=== PATIENT | male | born 1970 | race Caucasian/White ===

== ENCOUNTER 2019-11-22 04:06 | Inpatient (IN) | payer MEDICARE, MEDICAID ==
[2019-11-22] VITALS (7 sets, daily range): BP systolic 157–185; BP diastolic 99–117
[~2019-11-22] VITALS: Ht 167.6 cm; Wt 77.3 kg
[2019-11-22 05:14] LABS: BASOPHILS % 1.2 % (0.0-2.0); CHLORIDE 105 mEq/L (98-107); HEMATOCRIT. 38.2 % (42.0-52.0); HEMOGLOBIN. 12.9 g/dL (14.0-18.0); LYMPHOCYTES % 13.8 % (20.0-50.0); MEAN CORPUSCULAR HEMOGLOBIN 30.7 pg (28.0-32.0); MEAN CORPUSCULAR VOLUME 90.7 fL (80.0-94.0); MEAN PLATELET VOLUME 9.8 fl (7.4-10.4); PLATELET 123 x1000/uL (130-400); RED BLOOD CELL COUNT 4.21 mill/uL (4.7-6.1); RED CELL DISTRIBUTION WIDTH 15.2 % (11.6-14.6)
[2019-11-22] MEDS ORDERED: CALCIUM CHLORIDE 1GM/10ML SYR IV SCH (05:45)
[2019-11-22] MEDS ORDERED: SODIUM BICARBONATE 8.4% 1 MEQ/ML 50ML SYR IV SCH (05:45)
[2019-11-22] MEDS ORDERED: SODIUM POLYSTYRENE SULFONATE 15 G/60 ML BOT PO SCH (05:45)
[2019-11-22] MEDS ORDERED: ALBUTEROL (0.083%) 2.5MG/3ML NEB HHN SCH (05:45)
[2019-11-22] MEDS ORDERED: CALC667C MT (11:03)
[2019-11-22] MEDS ORDERED: CARV3.1242 PO (11:04)
[2019-11-22] MEDS ORDERED: NIFE-33 PO (11:04)
[2019-11-22] MEDS ORDERED: CLONIDINE 0.1MG TABLET PO PRN (12:15)
[2019-11-22] MEDS ORDERED: DEXTROSE 50% WATER 50ML SYRINGE IV PRN (15:15)
[2019-11-22] MEDS: NIFEDIPINE XL 30MG TAB PO SCH (15:28)
[2019-11-22] MEDS: BLOOD SUGAR DIAGNOSTIC STRIP TEST SCH ×2 (17:40→21:19)
[2019-11-22] MEDS: INSULIN LISPRO 100 UNITS/ML SUBCUT SCH ×2 (17:50→21:00)
[2019-11-22] MEDS: CALCIUM ACETATE 667MG CAPSULE PO SCH (18:51)
[2019-11-22] MEDS: CARVEDILOL 3.125 MG TABLET PO SCH (21:11)
[2019-11-23] VITALS (7 sets, daily range): BP systolic 148–176; BP diastolic 90–100
[2019-11-23] MEDS: BLOOD SUGAR DIAGNOSTIC STRIP TEST SCH ×3 (06:42→16:45)
[2019-11-23] MEDS: INSULIN LISPRO 100 UNITS/ML SUBCUT SCH ×3 (08:10→17:03)
[2019-11-23] MEDS: NIFEDIPINE XL 30MG TAB PO SCH (08:55)
[2019-11-23] MEDS: CALCIUM ACETATE 667MG CAPSULE PO SCH ×3 (08:55→18:12)
[2019-11-23] MEDS: CARVEDILOL 3.125 MG TABLET PO SCH ×2 (08:55→21:02)
[2019-11-23 10:31] LABS: BASOPHILS % 0.9 % (0.0-2.0); EOSINOPHILS % 6.2 % (0.0-5.0); HEMATOCRIT. 37.1 % (42.0-52.0); HEMOGLOBIN. 12.7 g/dL (14.0-18.0); LYMPHOCYTES % 19.1 % (20.0-50.0); MEAN CORPUSCULAR HEMOGLOBIN 30.8 pg (28.0-32.0); MEAN CORPUSCULAR VOLUME 89.8 fL (80.0-94.0); MEAN PLATELET VOLUME 9.7 fl (7.4-10.4); MONOCYTES % 9.7 % (2.0-8.0); NEUTROPHILS % 64.1 % (40.0-76.0); PLATELET 134 x1000/uL (130-400); RED BLOOD CELL COUNT 4.13 mill/uL (4.7-6.1); RED CELL DISTRIBUTION WIDTH 15.2 % (11.6-14.6)
[2019-11-24] VITALS: BP 139/80
[2019-11-24 06:06] LABS: BASOPHILS % 1.3 % (0.0-2.0); EOSINOPHILS % 5.1 % (0.0-5.0); HEMATOCRIT. 38.7 % (42.0-52.0); HEMOGLOBIN. 13.3 g/dL (14.0-18.0); LYMPHOCYTES % 22.9 % (20.0-50.0); MEAN CORPUSCULAR HEMOGLOBIN 30.7 pg (28.0-32.0); MEAN CORPUSCULAR VOLUME 89.2 fL (80.0-94.0); MEAN PLATELET VOLUME 9.6 fl (7.4-10.4); MONOCYTES % 12.7 % (2.0-8.0); PLATELET 153 x1000/uL (130-400); RED BLOOD CELL COUNT 4.34 mill/uL (4.7-6.1); RED CELL DISTRIBUTION WIDTH 14.8 % (11.6-14.6)
[2019-11-24] MEDS: CALCIUM ACETATE 667MG CAPSULE PO SCH ×2 (06:15→12:09)
[2019-11-24 08:00] VITALS: BP 145/78
[2019-11-24] MEDS: CARVEDILOL 3.125 MG TABLET PO SCH (08:45)
[2019-11-24] MEDS: NIFEDIPINE XL 30MG TAB PO SCH (08:45)
[2019-11-24 12:00] VITALS: BP 150/95
[2019-11-24 16:00] VITALS: BP 148/93
[2019-11-24 16:17] VITALS: BP 148/93
== END 2019-11-24 17:03 | disposition home or self-care (01) | DRG 291 ==
LOC: ER 04:06 → 7WST 05:50 → ENRESERV 08:50 → 5WST 11-23 14:41
PROVIDERS: ADMIT Internal Medicine; ATTEND Internal Medicine
PROC: 5A1D70Z Performance of Urinary Filtration, Intermittent, Less than 6 Hours Per Day (ICD-10-PCS; principal; 2019-11-22)
PROC: 5A1D70Z Performance of Urinary Filtration, Intermittent, Less than 6 Hours Per Day (ICD-10-PCS; 2019-11-23)
DX: I13.2 Hypertensive heart and chronic kidney disease with heart failure and with stage 5 chronic kidney disease, or end stage renal disease (principal); N18.6 End stage renal disease; J96.00 Acute respiratory failure, unspecified whether with hypoxia or hypercapnia; I50.43 Acute on chronic combined systolic (congestive) and diastolic (congestive) heart failure; J81.1 Chronic pulmonary edema; E11.22 Type 2 diabetes mellitus with diabetic chronic kidney disease; Z20.828 Contact with and (suspected) exposure to other viral communicable diseases; E87.5 Hyperkalemia; E87.70 Fluid overload, unspecified; E66.9 Obesity, unspecified; F41.0 Panic disorder [episodic paroxysmal anxiety]; Z99.2 Dependence on renal dialysis; Z79.899 Other long term (current) drug therapy; Z68.27 Body mass index [BMI] 27.0-27.9, adult
CPT/HCPCS: 36415; 71045; 80048; 80053; 82962; 83036; 83880; 84484; 85025; 87635; 93005; 94640; 99291; J3490

== ENCOUNTER 2021-01-01 12:17 | Inpatient (IN) | payer MEDICARE, MEDICAID ==
[~2021-01-01] VITALS: Ht 167.6 cm; Wt 69.9 kg
[~2021-01-01 12:17] MED LIST: CALC667C MT; CARV3.1242 PO; NIFE-33 PO
[2021-01-01] MEDS ORDERED: HYDROMORPHONE HCL/PF 2MG/ML CPJ IV ONE ×2 (13:30→17:15)
[2021-01-01 14:25] LABS: HEMATOCRIT. 38.9 % (42.0-52.0); HEMOGLOBIN. 13.1 g/dL (14.0-18.0); MEAN CORPUSCULAR HEMOGLOBIN 30.2 pg (28.0-32.0); MEAN CORPUSCULAR VOLUME 89.9 fL (80.0-94.0); MEAN PLATELET VOLUME 9.5 fl (7.4-10.4); PLATELET 178 x1000/uL (130-400); RED BLOOD CELL COUNT 4.32 mill/uL (4.7-6.1); RED CELL DISTRIBUTION WIDTH 16.2 % (11.6-14.6)
[2021-01-01 14:30] LABS: CHLORIDE 100 mEq/L (98-107)
[2021-01-01 15:22] LABS: PLATELET ESTIMATE NORMAL
[2021-01-01] MEDS ORDERED: CLONIDINE 0.1MG TABLET PO PRN (20:15)
[2021-01-01] MEDS ORDERED: ACETAMINOPHEN 325MG TABLET PO PRN ×2 (20:15)
[2021-01-01] MEDS ORDERED: ZOLPIDEM TARTRATE 5MG TABLET PO PRN (20:15)
[2021-01-01] MEDS ORDERED: ONDANSETRON HCL 4MG/2ML INJ IV PRN (20:15)
[2021-01-01] MEDS ORDERED: DIPHENHYDRAMINE 50MG/ML VIAL IV PRN (20:15)
[2021-01-01] MEDS ORDERED: MAGNESIUM/ALUMINUM HYDROXIDE/SIMETHICONE 30ML UDC PO PRN (20:15)
[2021-01-01] MEDS: FAMOTIDINE 20MG TABLET PO SCH (21:26)
[2021-01-01] MEDS: HYDROMORPHONE HCL/PF 2MG/ML CPJ IV PRN (21:35)
[2021-01-01] MEDS: SODIUM CHLORIDE 0.9% INJ 3ML FLUSH IVF SCH (21:57)
[2021-01-01] MEDS ORDERED: LABETALOL 5MG/ML SYR 20 MG/4 ML SYRINGE IV NR (22:15)
[2021-01-02] MEDS ORDERED: CLONIDINE 0.2MG TABLET PO PRN (00:15)
[2021-01-02 03:00] VITALS: BP 150/90
[2021-01-02 03:30] VITALS: BP 146/89
[2021-01-02] MEDS: SODIUM CHLORIDE 0.9% INJ 3ML FLUSH IVF SCH ×3 (05:04→21:17)
[2021-01-02] MEDS: HYDROMORPHONE HCL/PF 2MG/ML CPJ IV PRN (05:05)
[2021-01-02 08:00] VITALS: BP 134/75
[2021-01-02 09:02] LABS: EOSINOPHILS % 2.1 % (0.0-5.0); HEMATOCRIT. 28.8 % (42.0-52.0); HEMOGLOBIN. 9.7 g/dL (14.0-18.0); LYMPHOCYTES % 11.1 % (20.0-50.0); MEAN CORPUSCULAR HEMOGLOBIN 31.1 pg (28.0-32.0); MEAN CORPUSCULAR VOLUME 92.3 fL (80.0-94.0); MEAN PLATELET VOLUME 9.2 fl (7.4-10.4); MONOCYTES % 13.1 % (2.0-8.0); NEUTROPHILS % 72.7 % (40.0-76.0); PLATELET 174 x1000/uL (130-400); RED BLOOD CELL COUNT 3.12 mill/uL (4.7-6.1); RED CELL DISTRIBUTION WIDTH 16.2 % (11.6-14.6)
[2021-01-02] MEDS: NIFEDIPINE XL 30MG TAB PO SCH (09:16)
[2021-01-02 12:00] VITALS: BP 127/81
[2021-01-02 12:38] LABS: HEPATITIS B SURFACE ANTIGEN NEGATIVE
[2021-01-02 16:00] VITALS: BP 120/79
[2021-01-02 20:00] VITALS: BP 124/78
[2021-01-02] MEDS: HYDRALAZINE HCL 100MG TABLET PO SCH (21:17)
[2021-01-02] MEDS: FAMOTIDINE 20MG TABLET PO SCH (21:17)
[2021-01-03] VITALS: BP 133/79
[2021-01-03 04:00] VITALS: BP 152/92
[2021-01-03] MEDS: SODIUM CHLORIDE 0.9% INJ 3ML FLUSH IVF SCH ×3 (05:09→21:26)
[2021-01-03] MEDS: HYDRALAZINE HCL 100MG TABLET PO SCH ×3 (05:09→21:27)
[2021-01-03 07:58] LABS: EOSINOPHILS % 3.6 % (0.0-5.0); HEMATOCRIT. 29.8 % (42.0-52.0); HEMOGLOBIN. 9.4 g/dL (14.0-18.0); LYMPHOCYTES % 10.9 % (20.0-50.0); MEAN CORPUSCULAR HEMOGLOBIN 30.6 pg (28.0-32.0); MEAN CORPUSCULAR VOLUME 97.1 fL (80.0-94.0); MEAN PLATELET VOLUME 9.4 fl (7.4-10.4); MONOCYTES % 12.6 % (2.0-8.0); NEUTROPHILS % 71.9 % (40.0-76.0); PLATELET 157 x1000/uL (130-400); RED BLOOD CELL COUNT 3.07 mill/uL (4.7-6.1); RED CELL DISTRIBUTION WIDTH 16.8 % (11.6-14.6)
[2021-01-03 08:00] VITALS: BP 131/85
[2021-01-03] MEDS: NIFEDIPINE XL 30MG TAB PO SCH (08:56)
[2021-01-03 12:00] VITALS: BP 134/86
[2021-01-03] MEDS ORDERED: HYDROCODONE/ACETAMINOPHEN 10/325MG TABLET PO PRN (15:30)
[2021-01-03 16:00] VITALS: BP 138/80
[2021-01-03 20:00] VITALS: BP 133/71
[2021-01-03] MEDS: FAMOTIDINE 20MG TABLET PO SCH (21:26)
[2021-01-04] VITALS: BP 119/71
[2021-01-04 04:00] VITALS: BP 136/80
[2021-01-04] MEDS: HYDRALAZINE HCL 100MG TABLET PO SCH ×2 (05:40→14:43)
[2021-01-04] MEDS: SODIUM CHLORIDE 0.9% INJ 3ML FLUSH IVF SCH ×2 (05:40→14:43)
[2021-01-04 07:51] LABS: HEMATOCRIT 27.3 % (42.0-52.0); HEMOGLOBIN 9.2 g/dL (14.0-18.0); MEAN CORPUSCULAR HEMOGLOBIN 30.4 pg (28.0-32.0); MEAN CORPUSCULAR VOLUME 90.7 fL (80.0-94.0); PLATELET 163 x1000/uL (130-400); RED BLOOD CELL COUNT 3.01 mill/uL (4.7-6.1); RED CELL DISTRIBUTION WIDTH 16.6 % (11.6-14.6)
[2021-01-04 08:00] VITALS: BP 123/76
[2021-01-04] MEDS: NIFEDIPINE XL 30MG TAB PO SCH (09:52)
[2021-01-04 16:02] VITALS: BP 126/80
== END 2021-01-04 16:25 | disposition home or self-care (01) | DRG 604 ==
LOC: ER 12:17 → MICUSO 18:38 → EDBEDREQSVC 18:40 → EDBEDREQ 18:40 → EDBEDREQTM 18:40 → 6EST 01-02 02:23
PROVIDERS: ADMIT Internal Medicine; ATTEND Internal Medicine
PROC: 5A1D70Z Performance of Urinary Filtration, Intermittent, Less than 6 Hours Per Day (ICD-10-PCS; principal; 2021-01-03)
DX: S30.1XXA Contusion of abdominal wall, initial encounter (principal); N18.6 End stage renal disease; I12.0 Hypertensive chronic kidney disease with stage 5 chronic kidney disease or end stage renal disease; E11.22 Type 2 diabetes mellitus with diabetic chronic kidney disease; X58.XXXA Exposure to other specified factors, initial encounter; E66.9 Obesity, unspecified; E87.5 Hyperkalemia; Z20.822 Contact with and (suspected) exposure to COVID-19; Z99.2 Dependence on renal dialysis; Z68.24 Body mass index [BMI] 24.0-24.9, adult; Z79.899 Other long term (current) drug therapy; Y93.89 Activity, other specified; Y92.89 Other specified places as the place of occurrence of the external cause; Y99.8 Other external cause status
CPT/HCPCS: 36415; 71045; 74176; 80048; 80053; 83880; 84484; 85025; 85027; 86705; 86709; 86803; 87340; 87426; 93005; 99285; J1170; J3490

== ENCOUNTER 2024-04-10 17:17 | Inpatient (IN) | payer MEDICARE, MEDICAID ==
[~2024-04-10] VITALS: Ht 162.6 cm; Wt 87.1 kg
[2024-04-10 20:53] LABS: BASOPHILS % 1.5 % (0.0-2.0); DIFFERENTIAL COMMENT 0; EOSINOPHILS % 4.7 % (0.0-5.0); LYMPHOCYTES % 11.8 % (20.0-50.0); MEAN CORPUSCULAR HEMOGLOBIN 25.9 pg (28.0-32.0); MEAN CORPUSCULAR HGB CONC 30.5 g/dL (31.0-37.0); MEAN CORPUSCULAR VOLUME 85.1 fL (80.0-94.0); MEAN PLATELET VOLUME 7.8 fl (7.4-10.4); MONOCYTES % 12.6 % (2.0-8.0); NEUTROPHILS % 69.4 % (40.0-76.0); PLATELET 183 x1000/uL (130-400); RED BLOOD CELL COUNT 2.32 mill/uL (4.7-6.1); RED CELL DISTRIBUTION WIDTH 19.6 % (11.6-14.6); WHITE BLOOD COUNT 5.1 x1000/uL (4.5-11.0)
[2024-04-10 20:57] LABS: HEMATOCRIT. 19.7 % (42.0-52.0)
[2024-04-10 21:05] LABS: INR 1.1; PARTIAL THROMBOPLASTIN TIME 27.9 sec (23.4-31.0); PROTHROMBIN TIME 11.8 sec (9.6-11.0)
[2024-04-10 21:18] LABS: CHLORIDE 101 mEq/L (98-107); SODIUM 142 mEq/L (136-145)
[2024-04-10 21:19] LABS: CALCIUM 8.9 mg/dL (8.7-10.4); CARBON DIOXIDE 32 mEq/L (21-32)
[2024-04-10 21:24] LABS: GLUCOSE 92 mg/dL (70-105); UREA NITROGEN BLOOD 31 mg/dL (9-23)
[2024-04-11] VITALS (10 sets, daily range): BP systolic 118–160; BP diastolic 63–93; PULSE 77–91; RESP 16–20; TEMP 35.78064–36.9; O2SAT 96–100
[2024-04-11] MEDS ORDERED: KEPP500 MT (03:04)
[2024-04-11] MEDS ORDERED: FERR325T6 PO (03:04)
[2024-04-11] MEDS ORDERED: DEXTROSE 50% WATER 50ML SYRINGE IV PRN (03:15)
[2024-04-11] MEDS ORDERED: ONDANSETRON HCL 4MG/2ML INJ IV PRN (03:15)
[2024-04-11] MEDS ORDERED: *PATIENT'S OWN MEDICATION STORAGE XX SCH (05:00)
[2024-04-11] MEDS: BLOOD SUGAR DIAGNOSTIC STRIP TEST SCH (06:41)
[2024-04-11] MEDS: INSULIN LISPRO 100 UNITS/ML SUBCUT SCH (06:41)
[2024-04-11] MEDS: CALCIUM ACETATE 667MG CAPSULE PO SCH (10:05)
[2024-04-11] MEDS: LEVETIRACETAM 500MG TABLET PO SCH (10:06)
[2024-04-11] MEDS: NIFEDIPINE XL 30MG TAB PO SCH (10:06)
[2024-04-11] MEDS: CARVEDILOL 3.125 MG TABLET PO SCH (10:16)
[2024-04-11] MEDS ORDERED: ALLO100T MT (12:46)
[2024-04-11 17:21] LABS: HEMATOCRIT 25.8 % (42.0-52.0); HEMOGLOBIN 8.1 g/dL (14.0-18.0)
[2024-04-11 17:34] LABS: IRON 44 ug/dL (65-175)
[2024-04-11 17:37] LABS: TOTAL IRON BINDING CAPACITY 318 ug/dl (250-425)
[2024-04-11] MEDS: PNEUMOCOCCAL 20-VAL CONJ-DIP CRM 0.5ML IM ONE (21:00)
[2024-04-11] MEDS: IOHEXOL-300 100 ML BOTTLE ONE (23:37)
[2024-04-12] VITALS (11 sets, daily range): BP systolic 114–147; BP diastolic 65–87; PULSE 65–79; RESP 18–20; TEMP 35.6–36.7; O2SAT 96–100
[2024-04-12 07:02] LABS: CHLORIDE 97 mEq/L (98-107); POTASSIUM 4.8 mEq/L (3.5-5.1); SODIUM 137 mEq/L (136-145)
[2024-04-12 07:05] LABS: CARBON DIOXIDE 28 mEq/L (21-32)
[2024-04-12 07:07] LABS: BASOPHILS % 2.2 % (0.0-2.0); HEMATOCRIT. 24.7 % (42.0-52.0); LYMPHOCYTES % 10.7 % (20.0-50.0); MEAN CORPUSCULAR HEMOGLOBIN 27.2 pg (28.0-32.0); MEAN CORPUSCULAR HGB CONC 32.2 g/dL (31.0-37.0); MEAN CORPUSCULAR VOLUME 84.3 fL (80.0-94.0); MEAN PLATELET VOLUME 8.2 fl (7.4-10.4); MONOCYTES % 9.7 % (2.0-8.0); NEUTROPHILS % 72.4 % (40.0-76.0); PLATELET 169 x1000/uL (130-400); RED BLOOD CELL COUNT 2.93 mill/uL (4.7-6.1); RED CELL DISTRIBUTION WIDTH 19.2 % (11.6-14.6); WHITE BLOOD COUNT 5.4 x1000/uL (4.5-11.0)
[2024-04-12 07:10] LABS: GLUCOSE 96 mg/dL (70-105); UREA NITROGEN BLOOD 49 mg/dL (9-23)
[2024-04-12 07:12] LABS: ALANINE AMINOTRANSFERASE 7 IU/L (10-49); ALBUMIN 3.6 g/dL (3.2-4.8); ASPARTATE AMINOTRANSFERASE 13 IU/L (<34); BILIRUBIN DIRECT 0.2 mg/dL (<=3.0); BILIRUBIN TOTAL 0.5 mg/dL (0.1-1.0); PROTEIN TOTAL 6.1 g/dL (6.0-8.3)
[2024-04-12 07:18] LABS: CREATININE 7.3 mg/dL (0.6-1.3)
[2024-04-12 07:59] LABS: FOLIC ACID (FOLATE) SERUM 11.55 ng/mL (>5.38); VITAMIN B12 SERUM 1677 pg/mL (211-911)
[2024-04-12 08:10] LABS: HEPATITIS B SURFACE ANTIGEN NEGATIVE (Negative)
[2024-04-12 08:30] LABS: HEPATITIS A AB IGM NEGATIVE (Negative)
[2024-04-12 08:31] LABS: HEPATITIS B CORE AB IGM NEGATIVE (Negative); HEPATITIS C AB NON REACTIVE (Neg) (Negative)
[2024-04-12] MEDS: ASCORBIC ACID 250 MG TABLET PO SCH (18:05)
[2024-04-12] MEDS: FERROUS SULFATE 325MG TABLET PO SCH (18:05)
[2024-04-13] VITALS: BP 152/85; PULSE 66; RESP 18; TEMP 36.4; O2SAT 98
[2024-04-13 04:00] VITALS: BP 158/78; PULSE 75; RESP 18; TEMP 35.9; O2SAT 95
[2024-04-13 06:35] LABS: BASOPHILS % 1.8 % (0.0-2.0); EOSINOPHILS % 4.4 % (0.0-5.0); HEMATOCRIT. 26.1 % (42.0-52.0); HEMOGLOBIN. 8.3 g/dL (14.0-18.0); LYMPHOCYTES % 13.5 % (20.0-50.0); MEAN CORPUSCULAR HEMOGLOBIN 27.2 pg (28.0-32.0); MEAN CORPUSCULAR HGB CONC 31.7 g/dL (31.0-37.0); MEAN CORPUSCULAR VOLUME 85.6 fL (80.0-94.0); MEAN PLATELET VOLUME 8.2 fl (7.4-10.4); NEUTROPHILS % 68.3 % (40.0-76.0); PLATELET 164 x1000/uL (130-400); RED BLOOD CELL COUNT 3.04 mill/uL (4.7-6.1); RED CELL DISTRIBUTION WIDTH 19.3 % (11.6-14.6); WHITE BLOOD COUNT 5.2 x1000/uL (4.5-11.0)
[2024-04-13 06:59] LABS: CALCIUM 9.4 mg/dL (8.7-10.4); POTASSIUM 4.8 mEq/L (3.5-5.1)
[2024-04-13 07:14] LABS: CREATININE 7.7 mg/dL (0.6-1.3)
[2024-04-13 08:00] VITALS: BP 152/89; PULSE 75; RESP 19; TEMP 36.6; O2SAT 92
[2024-04-13 12:00] VITALS: BP 162/84; PULSE 73; RESP 18; TEMP 36.3; O2SAT 99
[2024-04-13 16:00] VITALS: BP 112/70; PULSE 68; RESP 18; TEMP 36.6; O2SAT 99
[2024-04-13 20:00] VITALS: BP 137/75; PULSE 75; RESP 18; TEMP 36.8; O2SAT 96
[2024-04-13] MEDS: EPOETIN ALFA-EPBX 4,000 UNIT/ML VIAL SUBCUT SCH (23:07)
[2024-04-14] VITALS: BP 127/75; PULSE 70; RESP 20; TEMP 36.7; O2SAT 99
[2024-04-14 04:00] VITALS: BP 136/81; PULSE 70; RESP 20; TEMP 36.6; O2SAT 97
[2024-04-14 06:45] LABS: POTASSIUM 5.1 mEq/L (3.5-5.1)
[2024-04-14 06:57] LABS: CREATININE 9.5 mg/dL (0.6-1.3)
[2024-04-14 07:07] LABS: BASOPHILS % 1.1 % (0.0-2.0); EOSINOPHILS % 4.4 % (0.0-5.0); HEMATOCRIT. 26.7 % (42.0-52.0); HEMOGLOBIN. 8.2 g/dL (14.0-18.0); LYMPHOCYTES % 10.7 % (20.0-50.0); MEAN CORPUSCULAR HEMOGLOBIN 26.2 pg (28.0-32.0); MEAN CORPUSCULAR HGB CONC 30.6 g/dL (31.0-37.0); MEAN CORPUSCULAR VOLUME 85.7 fL (80.0-94.0); MEAN PLATELET VOLUME 8.4 fl (7.4-10.4); MONOCYTES % 10.9 % (2.0-8.0); NEUTROPHILS % 72.9 % (40.0-76.0); PLATELET 159 x1000/uL (130-400); RED BLOOD CELL COUNT 3.12 mill/uL (4.7-6.1); WHITE BLOOD COUNT 5.6 x1000/uL (4.5-11.0)
[2024-04-14 08:00] VITALS: BP 140/71; PULSE 71; RESP 18; TEMP 36.4; O2SAT 96
[2024-04-14 12:00] VITALS: BP 133/70; PULSE 73; RESP 20; TEMP 36.1; O2SAT 97
[2024-04-14 16:00] VITALS: BP 146/74; PULSE 80; RESP 18; TEMP 36.4; O2SAT 96
[2024-04-14 20:00] VITALS: BP 135/60; RESP 20; TEMP 36.8; O2SAT 96
[2024-04-15] VITALS (10 sets, daily range): BP systolic 115–155; BP diastolic 70–85; PULSE 72–78; RESP 18–70; TEMP 36.4–36.8; O2SAT 93–98
[2024-04-15 20:36] LABS: DIFFERENTIAL COMMENT 0; EOSINOPHILS % 4.9 % (0.0-5.0); HEMOGLOBIN. 8.1 g/dL (14.0-18.0); LYMPHOCYTES % 11.3 % (20.0-50.0); MEAN CORPUSCULAR HEMOGLOBIN 26.9 pg (28.0-32.0); MEAN CORPUSCULAR HGB CONC 31.2 g/dL (31.0-37.0); MEAN CORPUSCULAR VOLUME 86.2 fL (80.0-94.0); MEAN PLATELET VOLUME 8.5 fl (7.4-10.4); MONOCYTES % 9.1 % (2.0-8.0); NEUTROPHILS % 72.7 % (40.0-76.0); PLATELET 151 x1000/uL (130-400); RED BLOOD CELL COUNT 3.02 mill/uL (4.7-6.1); RED CELL DISTRIBUTION WIDTH 20.4 % (11.6-14.6); WHITE BLOOD COUNT 5.5 x1000/uL (4.5-11.0)
[2024-04-15 20:43] LABS: CHLORIDE 97 mEq/L (98-107); POTASSIUM 5.6 mEq/L (3.5-5.1); SODIUM 135 mEq/L (136-145)
[2024-04-15 20:44] LABS: CARBON DIOXIDE 22 mEq/L (21-32)
[2024-04-15] MEDS: INSULIN REGULAR (HUMULIN R) 1000UNITS/10ML VIAL IV NR (21:15)
[2024-04-15 21:43] LABS: THYROID STIMULATING HORMONE 4.13 uIU/mL (0.55-4.78)
[2024-04-15] MEDS: SODIUM BICARBONATE 8.4% 50MEQ/50ML SYR IV NR (22:41)
[2024-04-15] MEDS: DEXTROSE 50% WATER 50ML SYRINGE IV NR (22:42)
[2024-04-15] MEDS: CALCIUM GLUCONATE 1GM PREMIX 50 ML IV NR (22:50)
[2024-04-16] VITALS: BP 126/73; RESP 19; TEMP 36.4; O2SAT 97
[2024-04-16 02:50] LABS: CHLORIDE 100 mEq/L (98-107); POTASSIUM 5.1 mEq/L (3.5-5.1); SODIUM 138 mEq/L (136-145)
[2024-04-16 02:51] LABS: CALCIUM 9.2 mg/dL (8.7-10.4); CARBON DIOXIDE 24 mEq/L (21-32)
[2024-04-16 02:56] LABS: GLUCOSE 87 mg/dL (70-105); UREA NITROGEN BLOOD 97 mg/dL (9-23)
[2024-04-16 02:57] LABS: TROPONIN I HIGH SENSITIVITY 44 ng/L (3.0-53)
[2024-04-16 03:20] LABS: BASOPHILS % 1.3 % (0.0-2.0); HEMATOCRIT. 26.2 % (42.0-52.0); HEMOGLOBIN. 8.2 g/dL (14.0-18.0); LYMPHOCYTES % 13.1 % (20.0-50.0); MEAN CORPUSCULAR HEMOGLOBIN 26.8 pg (28.0-32.0); MEAN CORPUSCULAR HGB CONC 31.4 g/dL (31.0-37.0); MEAN CORPUSCULAR VOLUME 85.2 fL (80.0-94.0); MEAN PLATELET VOLUME 8.4 fl (7.4-10.4); MONOCYTES % 11.3 % (2.0-8.0); NEUTROPHILS % 69.3 % (40.0-76.0); PLATELET 153 x1000/uL (130-400); RED BLOOD CELL COUNT 3.08 mill/uL (4.7-6.1); RED CELL DISTRIBUTION WIDTH 20.8 % (11.6-14.6); WHITE BLOOD COUNT 6.2 x1000/uL (4.5-11.0)
[2024-04-16 03:21] LABS: CREATININE 11.6 mg/dL (0.6-1.3)
[2024-04-16 04:00] VITALS: BP 135/76; RESP 18; TEMP 36.6; O2SAT 95
[2024-04-16 08:00] VITALS: BP 131/67; RESP 19; TEMP 36.5; O2SAT 100
[2024-04-16 12:00] VITALS: BP 129/68; RESP 20; TEMP 36.1; O2SAT 100
[2024-04-16 16:00] VITALS: BP 105/54; PULSE 67; RESP 20; TEMP 36.1; O2SAT 93
[2024-04-16 17:56] LABS: T4 FREE 0.91 ng/dL (0.89-1.76)
[2024-04-16 20:00] VITALS: BP 132/70; PULSE 65; RESP 0; TEMP 36.6; O2SAT 92
[2024-04-17] VITALS (7 sets, daily range): BP systolic 102–154; BP diastolic 54–81; PULSE 66–77; RESP 17–19; TEMP 36.1–36.8; O2SAT 94–99
[2024-04-17 00:41] LABS: CREATINE KINASE MB FRACTION 2.7 ng/mL (0.5-3.6)
[2024-04-17] MEDS: SODIUM ZIRCONIUM CYCLOSILICATE 10GM/PACKET PO ONE (09:00)
== END 2024-04-17 17:57 | disposition home or self-care (01) | DRG 811 ==
LOC: ER 17:17 → 8WST 20:21
PROVIDERS: ADMIT Internal Medicine Nephrology; ATTEND Internal Medicine Nephrology
PROC: 30233N1 Transfusion of Nonautologous Red Blood Cells into Peripheral Vein, Percutaneous Approach (ICD-10-PCS; principal; 2024-04-11)
PROC: 5A1D70Z Performance of Urinary Filtration, Intermittent, Less than 6 Hours Per Day (ICD-10-PCS; 2024-04-12)
PROC: 5A1D70Z Performance of Urinary Filtration, Intermittent, Less than 6 Hours Per Day (ICD-10-PCS; 2024-04-15)
PROC: 5A1D70Z Performance of Urinary Filtration, Intermittent, Less than 6 Hours Per Day (ICD-10-PCS; 2024-04-17)
DX: D64.9 Anemia, unspecified (principal); N18.6 End stage renal disease; I13.2 Hypertensive heart and chronic kidney disease with heart failure and with stage 5 chronic kidney disease, or end stage renal disease; E11.22 Type 2 diabetes mellitus with diabetic chronic kidney disease; R31.9 Hematuria, unspecified; N28.89 Other specified disorders of kidney and ureter; G40.909 Epilepsy, unspecified, not intractable, without status epilepticus; E61.1 Iron deficiency; F17.210 Nicotine dependence, cigarettes, uncomplicated; I50.9 Heart failure, unspecified; K74.60 Unspecified cirrhosis of liver; Z99.2 Dependence on renal dialysis; Z86.0100 Personal history of colon polyps, unspecified
CPT/HCPCS: 36415; 72195; 74177; 74181; 80048; 80051; 80061; 80076; 82105; 82248; 82550; 82553; 82607; 82746; 82962; 83036; 83540; 83550; 83735; 83880; 84439; 84443; 84484; 85014; 85018; 85025; 85044; 85379; 86705; 86709; 86850; 86900; 86920; 87340; 90732; 90935; 93005; 93306; 93970; 99291; A4565; A4606; A4663; J0610; J0885; J1815; J3490; P9016; Q9967